=== PATIENT | male | born 1995 | race Two or more races ===

== ENCOUNTER 2020-10-10 08:35 | Emergency (ER) | payer OTHER, BC ==
[2020-10-10 08:40] VITALS: RESP 18; TEMP 98
[2020-10-10] MEDS ORDERED: methylPREDNISolone SOD SUCCI 125 MG/2 ML VIAL IV STA (08:47)
[2020-10-10] MEDS ORDERED: ALBUTEROL NEBULIZED 2.5 MG/3 ML INHALATION STA (08:47)
[2020-10-10] MEDS ORDERED: IPRATROPIUM 0.5 MG/2.5 ML NEBU INHALATION STA (08:47)
--- NOTE | 2020-10-10 08:50 | ED ---
General Adult HPI - General Chief complaint: Shortness of Breath Stated complaint: asthma attack Time Seen by Provider: 10/10/20 08:35 Source: patient, RN notes reviewed, old records reviewed Mode of arrival: ambulatory Limitations: no limitations - History of Present Illness Initial comments: This is a 25-year-old male who presents emergency Department with a past medical history significant for asthma. Patient states about 3 hours ago he started having difficulty breathing this albuterol treatments weren't helping and he got to the point where he felt like to be seen immediately in emergency department. Patient denies any chest pain or palpitations. Patient denies any fever chills or cough. Patient denies any abdominal pain patient denies nausea vomiting or diarrhea. Patient denies any swelling to legs calf tenderness. Patient is A+ smile. Patient denies any diarrhea. Patient only complaint is shortness of breath. - Related Data Previous Rx's Medication Instructions Recorded predniSONE [Deltasone] 40 mg PO DAILY #8 tab 10/10/20 Allergies Allergy/AdvReac Type Severity Reaction Status Date / Time No Known Allergies Allergy Verified 10/10/20 08:40 Review of Systems ROS Statement: Those systems with pertinent positive or pertinent negative responses have been documented in the HPI. ROS Other: All systems not noted in ROS Statement are negative. Past Medical History Past Medical History: Asthma History of Any Multi-Drug Resistant Organisms: None Reported Past Surgical History: Orthopedic Surgery Additional Past Surgical History / Comment(s): bi lat knee Smoking Status: Never smoker Past Alcohol Use History: Occasional Past Drug Use History: None Reported General Exam - General Exam Comments Initial Comments: GENERAL: Patient is well-developed and well-nourished. Patient is nontoxic and well- hydrated and is in mild distress. ENT: Neck is soft and supple. No significant lymphadenopathy is noted. Oropharynx is clear. Moist mucous membranes. Neck has full range of motion without eliciting any pain. EYES: The sclera were anicteric and conjunctiva were pink and moist. Extraocular movements were intact and pupils were equal round and reactive to light. Eyelids were unremarkable. PULMONARY: Patient has diminished breath sounds and expiratory wheezing. CARDIOVASCULAR: There is a regular rate and rhythm without any murmurs gallops or rubs. ABDOMEN: Soft and nontender with normal bowel sounds. SKIN: Skin is clear with no lesions or rashes and otherwise unremarkable. NEUROLOGIC: Patient is alert and oriented x3. Cranial nerves II through XII are grossly intact. Motor and sensory are also intact. Normal speech, volume and content. Symmetrical smile. MUSCULOSKELETAL: Normal extremities with adequate strength and full range of motion. No lower extremity swelling or edema. No calf tenderness. LYMPHATICS: No significant lymphadenopathy is noted PSYCHIATRIC: Normal psychiatric evaluation. Limitations: no limitations Course Vital Signs 10/10/20 10/10/20 10/10/20 08:35 08:53 09:10 Temperature 98 F Pulse Rate 116 H 112 H 128 H Respiratory 18 Rate Blood Pressure 149/84 O2 Sat by Pulse 94 L Oximetry Medical Decision Making - Medical Decision Making EKG shows sinus tachycardia at a rate about 122 bpm ND interval 150 QRS is 88 QT interval 04 QTC is 433. Patient's EKG shows no ST segment elevation or depression. Patient received 2 treatments of albuterol one of Atrovent as well as Solu- Medrol. Patient also accidentally received droperidol it was meant for another patient and I actually placed on this patient's orders and it was given. I informed the patient once I found out. I will back into reevaluate the patient's breathing he stated he felt much improved and his lungs were now clear. Disposition Clinical Impression: Asthma with acute exacerbation Disposition: HOME SELF-CARE Instructions (If sedation given, give patient instructions): Asthma (ED) Prescriptions: predniSONE [Deltasone] 40 mg PO DAILY #8 tab Is patient prescribed a controlled substance at d/c from ED?: No Referrals: None,Stated [Primary Care Provider] - 1-2 days Time of Disposition: 09:55
--- NOTE | 2020-10-10 09:44 | XR ---
EXAMINATION TYPE: XR chest 2V DATE OF EXAM: 10/10/2020 COMPARISON: None HISTORY: 25 year-old male shortness of breath, difficulty breathing TECHNIQUE: PA and lateral views FINDINGS: The cardiomediastinal silhouette, aorta, and pulmonary vasculature are within normal limits. Some sca ttered mild peribronchial cuffing. Some strandy areas of atelectasis. No estelle consolidation or pleur al effusion. IMPRESSION: Peribronchial cuffing suggests bronchitis or chronic asthma. Some strandy areas of atelectasis. No fo odette infiltrate.
[2020-10-10 10:09] VITALS: BP 146/81; PULSE 108
== END 2020-10-10 10:09 | disposition home or self-care (01) ==
LOC: EC 08:35
DX: J45.901 Unspecified asthma with (acute) exacerbation (principal)
CPT/HCPCS: 94640; 93005; 71046; 99285; 96374; 96375; J2930; J1790

== ENCOUNTER 2021-10-26 22:02 | Emergency (ER) | payer OTHER, BC ==
[2021-10-26 22:11] VITALS: BP 142/90; PULSE 82; RESP 20; TEMP 97.6
--- NOTE | 2021-10-26 22:31 | XR ---
EXAMINATION TYPE: XR shoulder complete RT DATE OF EXAM: 10/26/2021 COMPARISON: NONE HISTORY: Shoulder pain TECHNIQUE: 3 views FINDINGS: The glenohumeral joint is intact. I see no fracture nor dislocation. Soft tissues appear no rmal. IMPRESSION: Negative right shoulder exam
[2021-10-26] MEDS ORDERED: KETOROLAC 15 MG/ML 1 ML VIAL IM STA (23:08)
[2021-10-26] MEDS ORDERED: ACET/COD 300 MG/30 MG STARTER PACK 6 TAB BTL PO STA (23:09)
[2021-10-26] MEDS ORDERED: CYCLOBENZAPRINE 10MG STARTER 3 TAB BTL PO STA (23:09)
[2021-10-26] MEDS ORDERED: IBUPROFEN 600 MG STARTER PACK 4 TAB BTL PO STA (23:09)
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
== END 2021-10-26 23:35 | disposition home or self-care (01) ==
LOC: EC 22:02
DX: S46.911A Strain of unspecified muscle, fascia and tendon at shoulder and upper arm level, right arm, initial encounter (principal); J45.909 Unspecified asthma, uncomplicated; F17.200 Nicotine dependence, unspecified, uncomplicated; V89.2XXA Person injured in unspecified motor-vehicle accident, traffic, initial encounter
CPT/HCPCS: 73030; 99284; 96372; J1885

== ENCOUNTER 2023-08-20 22:00 | Emergency (ER) | payer OTHER, BC ==
--- NOTE | 2023-08-20 22:21 | ED ---
General Adult HPI - General Source: patient, RN notes reviewed Mode of arrival: ambulatory Limitations: no limitations <Mila Munroe - Last Filed: 08/20/23 22:19> <Wally Coley - Last Filed: 08/21/23 00:22> - General Stated complaint: SOB Time Seen by Provider: 08/20/23 22:19 - History of Present Illness Initial comments: Quick note: 27-year-old presents to the emergency department for evaluation palpitations. Patient states that around 5 PM today he noticed his heart racing. He states that his heart rate was elevated. He admits to some lightheadedness. He denies chest pain, shortness of breath. (Mila Munroe) Dictation was produced using [employer] dictation software. please excuse any grammatical, word or spelling errors. Chief Complaint: 27-year-old male presents to the ER for palpitations History of Present Illness: Patient 27-year-old male at around noon today he started to have feeling of palpitations. States started to feel little lightheaded. Patient does wear an Apple Watch and for the following next 3 to 4 hours she had high heart rates. That had some to do with his blood sugar so he drinks sugary beverages. States that his symptoms did not improve. Patient decided come to the ER after leaving work. Patient states that his symptoms improved since being in the ER. Patient denies any medical history. The ROS documented in this emergency department record has been reviewed and confirmed by me. Those systems with pertinent positive or negative responses have been documented in the HPI. All other systems are other negative and/or noncontributory. (Wally Coley) - Related Data Previous Rx's Medication Instructions Recorded predniSONE [Deltasone] 40 mg PO DAILY #8 tab 10/10/20 Cyclobenzaprine [Flexeril] 10 mg PO TID PRN #20 tab 10/26/21 Ibuprofen [Motrin] 600 mg PO Q8HR PRN #30 tab 10/26/21 Allergies Allergy/AdvReac Type Severity Reaction Status Date / Time No Known Allergies Allergy Verified 08/20/23 22:18 Review of Systems ROS Other: All systems not noted in ROS Statement are negative. <Mila Munroe - Last Filed: 04/22/24 22:19> ROS Other: All systems not noted in ROS Statement are negative. <Wally Coley - Last Filed: 08/21/23 00:22> ROS Statement: Those systems with pertinent positive or pertinent negative responses have been documented in the HPI. Past Medical History Past Medical History: Asthma History of Any Multi-Drug Resistant Organisms: None Reported Past Surgical History: Orthopedic Surgery Additional Past Surgical History / Comment(s): bi lat knee, right femur Fx Past Psychological History: No Psychological Hx Reported Smoking Status: Current some day smoker Past Alcohol Use History: Occasional Past Drug Use History: None Reported <Mila Munroe - Last Filed: 08/20/23 22:19> General Exam Limitations: no limitations <Mila Munroe - Last Filed: 08/20/23 22:19> <Wally Coley - Last Filed: 08/21/23 00:22> - General Exam Comments Initial Comments: Visual Physical Exam Vital signs reviewed General: Well-appearing, nontoxic, no acute distress. Head: Normocephalic, atraumatic Eyes: PERRLA, EOMI ENT: Airway patent Chest: Nonlabored breathing Skin: No visual rash, normal skin tone Neuro: Alert and oriented 3 Musculoskeletal: No gross abnormalities (Mila Munroe) PHYSICAL EXAM: General Impression: Alert and oriented x3, not in acute distress HEENT: Normocephalic atraumatic, extra-ocular movements intact, pupils equal and reactive to light bilaterally, mucous membranes moist. Cardiovascular: Heart regular rate and rhythm Chest: Able to complete full sentences, no retractions, no tachypnea Abdomen: abdomen soft, non-tender, non-distended, no organomegaly Musculoskeletal: Pulses present and equal in all extremities, no peripheral edema Motor: no focal deficits noted Neurological: CN II-XII grossly intact, no focal motor or sensory deficits noted Skin: Intact with no visualized rashes Psych: Normal affect and mood (Wally Coley) Course Vital Signs 08/20/23 22:16 Temperature 98.6 F Pulse Rate 94 Respiratory 18 Rate Blood Pressure 151/85 O2 Sat by Pulse 98 Oximetry Medical Decision Making <Mila Munroe - Last Filed: 08/20/23 22:19> - Lab Data Result diagrams: 08/20/23 22:48 08/20/23 22:48 <ViancaWally D - Last Filed: 08/21/23 00:22> - Medical Decision Making Quick note performed and electronically signed by Mila Munroe PA-C (Mila Munroe) Was pt. sent in by a medical professional or institution (JAZIEL Eric, CHIEF INFORMATION SECURITY OFFICER, urgent care, hospital, or senior care...) When possible be specific @ -No Did you speak to anyone other than the patient for history (EMS, parent, family, police, friend...)? What history was obtained from this source @ -No Did you review nursing and triage notes (agree or disagree)? Why? @ -I reviewed and agree with nursing and triage notes Were old charts reviewed (outside hosp., previous admission, EMS record, old EKG, old radiological studies, urgent care reports/EKG's, senior care records)? Report findings @ -No old charts were reviewed Differential Diagnosis (chest pain, altered mental status, abdominal pain women, abdominal pain men, vaginal bleeding, musculoskeletal, weakness, fever, dyspnea, syncope, headache, dizziness, GI bleed, back pain, seizure, CVA, palpatations, mental health)? @ - Differential Palpitations: Ventricular arrhythmias, atrial arrhythmias, myocardial infarction, anemia, thyrotoxicosis, electrolyte imbalance, hypokalemia, pulmonary embolism, pulmonary disease, drugs, alcohol, anxiety, stress.... This is not meant to be an all-inclusive list. EKG interpreted by me (3pts min.). @ -My EKG interpretation: Ventricular rate 93, sinus rhythm,. 169, cures 99, QTc 403. No MS prolongation, no QTC prolongation, no ST or T-wave changes noted. E Overall, this EKG is unremarkable X-rays interpreted by me (1pt min.). @ -Chest x-ray is nonacute CT interpreted by me (1pt min.). @ -None done U/S interpreted by me (1pt. min.). @ -None done What testing was considered but not performed or refused? (CT, X-rays, U/S, labs)? Why? @ -None What meds were considered but not given or refused? Why? @ -None Did you discuss the management of the patient with other professionals (professionals i.e. Dr., PA, CHIEF INFORMATION SECURITY OFFICER, lab, RT, psych nurse, social worker palliative care, repairer pump, teacher, commanding officer homicide squad, caseworker intake)? Give summary @ -No Was smoking cessation discussed for >3mins.? @ -No Was critical care preformed (if so, how long)? @ -No Were there social determinants of health that impacted care today? How? (Homelessness, low income, unemployed, alcoholism, drug addiction, transport ation, low edu. Level, literacy, decrease access to med. care, senior care, rehab)? @ -No Was there de-escalation of care discussed even if they declined (Discuss DNR or withdrawal of care, Hospice)? DNR status @ -No What co-morbidities impacted this encounter? (DM, HTN, Smoking, COPD, CAD, Cancer, CVA, ARF, Chemo, Hep., AIDS, mental health diagnosis, sleep apnea, morbid obesity)? @ -None Was patient admitted / discharged? Hospital course, mention meds given and route, prescriptions, significant lab abnormalities, going to OR and other pertinent info. @ -27-year-old well-appearing male presents to the ER for chief complaint of palpitations. Vital signs upon arrival are within acceptable limits.Laboratory evaluation is unremarkable. EKG is negative. TSH and electrolytes negative. Patient observed in emergency department in the waiting room for several hours. Is finally evaluated by myself at 12:00 AM. Patient well-appearing. H he has not been on the monitoring analyst. He however had his pulse checked and is regular rate and rhythm. Patient discharged advised follow-up with primary care doctor. Return precautions discussed. Patient has no high risk features. It was explained to him that it is unclear if patient has any serious arrhythmia. He is told to follow-up closely with his primary care doctor. Patient is introduced to the idea of Holter monitor testing. Undiagnosed new problem with uncertain prognosis? @ -No Drug Therapy requiring intensive monitoring for toxicity (Heparin, Nitro, Insulin, Cardizem)? @ -No Were any procedures done? @ -No Diagnosis/symptom? Acute, or Chronic, or Acute on Chronic? Uncomplicated (without systemic symptoms) or Complicated (systemic symptoms)? @ -Palpitations Side effects of treatment? @ -No Exacerbation, Progression, or Severe Exacerbation? @ -No Poses a threat to life or bodily function? How? (Chest pain, [place], [place], pneumonia, PE, COPD, DKA, ARF, appy, cholecystitis, CVA, Diverticulitis, Homicidal, Suicidal, threat to staff... and all critical care pts) @ -No (Wally Coley) - Lab Data Lab Results 08/20/23 08/20/23 08/20/23 Range/Units 22:48 22:48 22:48 WBC 13.0 H (3.8-10.6) k/uL RBC 5.25 (4.30-5.90) m/uL Hgb 14.7 (13.0-17.5) gm/dL Hct 46.1 (39.0-53.0) % MCV 87.7 (80.0-100.0) fL MCH 28.0 (25.0-35.0) pg MCHC 32.0 (31.0-37.0) g/dL RDW 13.5 (11.5-15.5) % Plt Count 289 (150-450) k/uL MPV 8.3 Neutrophils % 62 % Lymphocytes % 31 % Monocytes % 4 % Eosinophils % 2 % Basophils % 1 % Neutrophils # 8.1 H (1.3-7.7) k/uL Lymphocytes # 4.0 (1.0-4.8) k/uL Monocytes # 0.5 (0-1.0) k/uL Eosinophils # 0.2 (0-0.7) k/uL Basophils # 0.1 (0-0.2) k/uL PT 11.1 (10.0-12.5) sec INR 1.0 (<1.2) APTT 27.8 (22.0-30.0) sec Sodium 141 (137-145) mmol/L Potassium 3.8 (3.5-5.1) mmol/L Chloride 110 H (98-107) mmol/L Carbon Dioxide 22 (22-30) mmol/L Anion Gap 9 mmol/L BUN 21 H (9-20) mg/dL Creatinine 0.88 (0.66-1.25) mg/dL Est GFR (CKD-EPI)AfAm >90 (>60 ml/min/1.73 sqM) Est GFR (CKD-EPI)NonAf >90 (>60 ml/min/1.73 sqM) Glucose 117 H (74-99) mg/dL Calcium 9.6 (8.4-10.2) mg/dL Magnesium 2.0 (1.6-2.3) mg/dL Total Bilirubin 0.4 (0.2-1.3) mg/dL AST 27 (17-59) U/L ALT 28 (4-49) U/L Alkaline Phosphatase 70 (38-126) U/L Total Protein 7.5 (6.3-8.2) g/dL Albumin 4.7 (3.5-5.0) g/dL TSH 2.490 (0.465-4.680) mIU/L Disposition <Mila Munroe - Last Filed: 08/20/23 22:19> Is patient prescribed a controlled substance at d/c from ED?: No Time of Disposition: 00:17 <Wally Coley - Last Filed: 08/21/23 00:22> Clinical Impression: Palpitations Disposition: HOME SELF-CARE Condition: Fair Instructions (If sedation given, give patient instructions): Heart Palpitations (ED) Referrals: None,Stated [Primary Care Provider] - 1-2 days
[2023-08-20 22:25] VITALS: BP 151/85; RESP 18
--- NOTE | 2023-08-20 22:45 | XR ---
EXAM: XR Chest, 2 Views CLINICAL HISTORY: ITS.REASON XR Reason: dysrhythmia TECHNIQUE: Frontal and lateral views of the chest. COMPARISON: No relevant prior studies available. FINDINGS: Lungs: Unremarkable. No consolidation. Pleural space: Unremarkable. No pneumothorax. Heart: Unremarkable. No cardiomegaly. Mediastinum: Unremarkable. Normal mediastinal contour. Bones/joints: Unremarkable. No acute fracture. IMPRESSION: Normal chest x-rays.
[2023-08-20 23:05] LABS: Basophils # (A) 0.1 k/uL (0-0.2); Basophils % (A) 1 %; Eosinophils # (A) 0.2 k/uL (0-0.7); Eosinophils % (A) 2 %; HCT 46.1 % (39.0-53.0); HGB 14.7 gm/dL (13.0-17.5); Lymphocytes % (A) 31 %; MCV 87.7 fL (80.0-100.0); Mean Platelet Volume 8.3; Monocytes # (A) 0.5 k/uL (0-1.0); Monocytes % (A) 4 %; Neutrophils # (A) 8.1 k/uL (1.3-7.7); Neutrophils % (A) 62 %; Platelet Count 289 k/uL (150-450); RBC 5.25 m/uL (4.30-5.90); RDW 13.5 % (11.5-15.5)
[2023-08-20 23:17] LABS: ALT 28 U/L (4-49); AST 27 U/L (17-59); African American GFR (CKD) >90 (>60 ml/min/1.73 sqM); Albumin 4.7 g/dL (3.5-5.0); Alkaline Phosphatase 70 U/L (38-126); Anion Gap 9 mmol/L; Blood Urea Nitrogen 21 mg/dL (9-20); Calcium 9.6 mg/dL (8.4-10.2); Carbon Dioxide 22 mmol/L (22-30); Chloride 110 mmol/L (98-107); Glucose 117 mg/dL (74-99); Non-African American GFR(CKD) >90 (>60 ml/min/1.73 sqM); Potassium 3.8 mmol/L (3.5-5.1); Sodium 141 mmol/L (137-145); Total Bilirubin 0.4 mg/dL (0.2-1.3); Total Protein 7.5 g/dL (6.3-8.2)
[2023-08-20 23:39] LABS: Partial Thromboplastin Time 27.8 sec (22.0-30.0); Prothrombin Time 11.1 sec (10.0-12.5)
[2023-08-21 01:20] VITALS: PULSE 77; TEMP 98
== END 2023-08-21 00:27 | disposition home or self-care (01) ==
LOC: EC 22:00
DX: R00.2 Palpitations (principal); F17.200 Nicotine dependence, unspecified, uncomplicated
CPT/HCPCS: 36415; 71046; 80053; 83735; 84443; 85025; 85610; 85730; 93005; 99285